=== PATIENT | female | born 1965 | race Caucasian/White ===

== ENCOUNTER 2016-04-25 22:30 | Emergency (ER) | payer OTHER ==
[2016-04-25 22:36] VITALS: BP 148/85; PULSE 93; TEMP 98.8; BMI 26.5
[2016-04-25] MEDS ORDERED: ONDANSETRON 4 MG/2 ML VIAL IVPUSH ONE (23:19)
[2016-04-25] MEDS ORDERED: SODIUM CHLORIDE 1,000 ML IV STA (23:19)
[2016-04-25] MEDS ORDERED: FAMOTIDINE 20 MG/50 ML IVPB 50 ML IVPB ONE (23:19)
--- NOTE | 2016-04-25 23:19 | PDOC ---
History of Present Illness - General History Source: Patient, Old Records Exam Limitations: No Limitations - History of Present Illness Initial Comments: 04/25/16 23:24 The patient is a 50 year old female with significant past medical history of HTN , kidney disease, and thyroid disease, who presents to the ED with vomiting dizziness, and headache for 2 days. The patient reports that after smelling clorox she began vomiting. The patient reports associated abdominal pain only when she vomits. The patient states that she began to feel dizzy and developed a headache after vomiting. The patient denies diarrhea, or sick contacts. <Arash Cortes - Last Filed: 04/26/16 00:07> <Nico Hendrickson - Last Filed: 04/26/16 01:31> - General Chief Complaint: Nausea/Vomiting Stated Complaint: VOMITING Time Seen by Provider: 04/25/16 23:14 Past History <Arash Cortes - Last Filed: 04/26/16 00:07> - Past Medical History HTN: Yes Seizures: Yes - Surgical History Cholecystectomy: Yes - Psycho/Social/Smoking Cessation Hx Anxiety: No Suicidal Ideation: No Smoking History: Never smoked Have you smoked in the past 12 months: No Information on smoking cessation initiated: No Hx Alcohol Use: No Drug/Substance Use Hx: No Substance Use Type: None <Nico Hendrickson - Last Filed: 04/26/16 01:31> - Past Medical History Allergies/Adverse Reactions: Allergies Allergy/AdvReac Type Severity Reaction Status Date / Time No Known Allergies Allergy Verified 04/25/16 22:33 Home Medications: Ambulatory Orders Levothyroxine [Synthroid -] 100 mcg PO DAILY 10/05/14 Review of Systems - Review of Systems Able to Perform ROS?: Yes Constitutional: Yes: Symptoms Reported, See HPI, Other HEENTM: Yes: Symptoms Reported, See HPI, Other ABD/GI: Yes: Symptoms Reported, See HPI, Nausea, Vomiting, Abdominal cramping Neurological: Yes: Symptoms reported, See HPI, Headache <Arash Cortes - Last Filed: 04/26/16 00:07> *Physical Exam - Vital Signs Last Vital Signs Temp Pulse Resp BP Pulse Ox 98.8 F 93 H 14 148/85 99 04/25/16 22:34 04/25/16 22:34 04/25/16 22:34 04/25/16 22:34 04/25/16 22:34 <Arash Cortes - Last Filed: 04/26/16 00:07> - Vital Signs Last Vital Signs Temp Pulse Resp BP Pulse Ox 98.8 F 93 H 14 148/85 99 04/25/16 22:34 04/25/16 22:34 04/25/16 22:34 04/25/16 22:34 04/25/16 22:34 - Physical Exam General Appearance: Yes: Nourished, Appropriately Dressed. No: Apparent Distress HEENT: positive: EOMI, WILL, Normal ENT Inspection Neck: positive: Supple. negative: Carotid bruit Respiratory/Chest: positive: Lungs Clear, Normal Breath Sounds. negative: Chest Tender, Respiratory Distress Cardiovascular: positive: Regular Rhythm, Regular Rate Gastrointestinal/Abdominal: positive: Normal Bowel Sounds, Soft. negative: Tender Musculoskeletal: positive: Normal Inspection. negative: CVA Tenderness Extremity: positive: Normal Capillary Refill, Normal Range of Motion. negative : Pedal Edema Integumentary: positive: Normal Color Neurologic: positive: cashier self service gasoline II-XII NML intact, Fully Oriented, Alert, Normal Mood/ Affect, Normal Response, Motor Strength 5/5, Other (NO ATAXIA OR NYSTAGMUS) <Nico Hendrickson - Last Filed: 04/26/16 01:31> ED Treatment Course - LABORATORY CBC & Chemistry Diagram: 04/25/16 23:40 04/25/16 23:40 <Arash Cortes - Last Filed: 04/26/16 00:07> - LABORATORY CBC & Chemistry Diagram: 04/25/16 23:40 04/25/16 23:40 <Nico Hendrickson - Last Filed: 04/26/16 01:31> Progress Note - Progress Note Progress Note: VOMITING, HEAD ACHE, AND DIZZINESS LIKELY VIRAL WILL HYDRATE/ZOFRAN/PEPCID CHECK BMP REASSESS 1:29 am Better. azam po labs wnl and u/a c/w pmhx reported d/c home <Nico Hendrickson - Last Filed: 04/26/16 01:31> *DC/Admit/Observation/Transfer - Attestations Scribe Attestion: 04/25/16 23:24 Documentation prepared by Arash Artuso, acting as medical secretary teacher for Nico Hendrickson MD. <Arash Cortes - Last Filed: 04/26/16 00:07> <Nico Hendrickson - Last Filed: 04/26/16 01:31> Diagnosis at time of Disposition: Vomiting Qualifiers: Vomiting type: unspecified Vomiting Intractability: non-intractable Nausea presence: with nausea Qualified Code(s): R11.2 - Nausea with vomiting, unspecified - Discharge Dispostion Disposition: HOME Condition at time of disposition: Improved - Referrals Referrals: Antoni Zapien MD [Primary Care Provider] - Call tomorrow - Patient Instructions Additional Instructions: TAKE ALL MEDICATIONS PRESCRIBED PLENTY OF FLUIDS (WATER/GATORADE) BLAND DIET, ADVANCE TOLERATED EAT FREQUENT, SMALL MEALS THROUGHOUT THE DAY MAALOX, 30 ml 1/2 HOUR AFTER MEALS AND AT BED TIME RETURN IF FEVER, VOMITING, SEVERE PAIN SEE YOUR DOCTOR TOMORROW
[2016-04-26] MEDS ORDERED: FAMOTIDINE 20 MG/50 ML IVPB 50 ML IVPB ONE (00:02)
[2016-04-26] MEDS ORDERED: ONDANSETRON 4 MG/2 ML VIAL ONE (00:02)
[2016-04-26 00:09] LABS: MCH 29.4 pg (25.7-33.7); MEAN CELL VOLUME 89.1 fl (80-96); MEAN PLT VOLUME 9.4 fl (7.5-11.1); PLATELET COUNT 233 K/MM3 (134-434); RDW 13.5 % (11.6-15.6); WHITE BLOOD COUNT 9.1 K/mm3 (4.0-10.0)
[2016-04-26 00:41] LABS: CALCIUM 9.1 mg/dL (8.5-10.1); CREATININE 0.7 mg/dL (0.55-1.02)
[2016-04-26 00:45] LABS: URINE APPEARANCE SLCLOUDY; URINE BILIRUBIN NEGATIVE (NEGATIVE); URINE COLOR AMBER; URINE GLUCOSE (UA) NEGATIVE (NEGATIVE); URINE KETONE TRACE (NEGATIVE); URINE LEUK ESTERASE NEGATIVE (NEGATIVE); URINE NITRITE NEGATIVE (NEGATIVE); URINE UROBILINOGEN 2.0 E.U/dl E.U./dl (0.2-1.0)
[2016-04-26 00:51] LABS: URINE BLOOD 1+ (NEGATIVE); URINE PROTEIN 2+ (NEGATIVE)
[2016-04-26] MEDS ORDERED: MAG HYDROX/AL HYDROX/SIMETH 30 ML UNIT-DOSE CUP PO ONE (01:21)
[2016-04-26 01:22] LABS: URINE HYALINE CAST 13 /lpf; URINE MUCUS MODERATE; URINE RBC 7 /hpf (0-3); URINE WBC 3 /hpf (3-5)
[2016-04-26 01:23] LABS: URINE BACTERIA RARE /hpf (NONE SEEN)
[2016-04-26] MEDS ORDERED: MAG HYDROX/AL HYDROX/SIMETH 30 ML UNIT-DOSE CUP ONE (01:28)
[2016-04-26] MEDS ORDERED: ONDANSETRON *ODT* 4 MG TABLET SL ONE (01:56)
[2016-04-26] MEDS ORDERED: ONDANSETRON 8 MG TABLET (FP) PO ONE (01:58)
== END 2016-04-26 02:43 | disposition home or self-care (01) ==
LOC: JER 22:30
PROC: 3E033GC Introduction of Other Therapeutic Substance into Peripheral Vein, Percutaneous Approach (ICD-10-PCS; principal; 2016-04-25)
DX: B34.9 Viral infection, unspecified (principal)
CPT/HCPCS: 36415; 80048; 81003; 81015; 85027; 99282-25

== ENCOUNTER 2016-04-27 14:34 | Emergency (ER) | payer OTHER ==
[2016-04-27 14:48] VITALS: BMI 26.9
--- NOTE | 2016-04-27 15:27 | PDOC ---
History of Present Illness - General Chief Complaint: Headache Stated Complaint: (PCP SENT) VOMITING Time Seen by Provider: 04/27/16 15:09 History Source: Patient Exam Limitations: No Limitations - History of Present Illness Initial Comments: 04/27/16 15:27 CHIEF COMPLAINT: Headache HISTORY OF PRESENT ILLNESS: This is a 50 year old female with a history of thyroidectomy, HTN, and diet-controlled DM who presents for evaluation of five days of headache and vomiting. The headache started on Monday during her usual activities. She describes it as both frontal and occipital. She reports associated vomiting. The headache has persisted despite Motrin use and she vomited once today. She has been having chills throughout. She has photophobia but denies phonophobia, focal weakness, dizziness/ataxia, syncope, or any other symptoms. She does have a distant history of migraines, but has not had one for many years and states that these symptoms are different. The patient was seen in the ED on 04/25 and discharged after fluids and Zofran. She is sent in by her PCP today with a request for LP to rule out viral meningitis. The patient teaches in a college. She travelled to in February. She has had no known sick contacts. Vital signs on arrival are unremarkable. REVIEW OF SYSTEMS: GENERAL/CONSTITUTIONAL: Chills. Subjective fever on Monday. No weakness. No weight change. HEAD, EYES, EARS, NOSE AND THROAT: No change in vision. No ear pain or discharge. No sore throat. CARDIOVASCULAR: No chest pain or palpitations. RESPIRATORY: No cough, wheezing, or shortness of breath. GASTROINTESTINAL: Nausea/vomiting. No abdominal pain, diarrhea, or constipation. GENITOURINARY: No dysuria, frequency, or change in urination. MUSCULOSKELETAL: No joint or muscle swelling or pain. No neck or back pain. SKIN: No rash or easy bruising. NEUROLOGIC: See HPI. PSYCHIATRIC: No depression or anxiety. ENDOCRINE: No increased thirst. No abnormal weight change. HEMATOLOGIC/LYMPHATIC: No anemia, easy bleeding, or history of blood clots. ALLERGIC/IMMUNOLOGIC: No hives or skin allergy. No latex allergy. PHYSICAL EXAM: GENERAL: The patient is awake, alert, and fully oriented, in no acute distress. HEAD: Normal with no signs of trauma. ENT: Pupils equal, round and reactive to light, extraocular movements intact, sclera anicteric, conjunctiva clear. Neck supple. LUNGS: Clear to auscultation bilaterally. Normal excursion. No respiratory distress or use of accessory muscles. CV: RRR, S1/S2, no MRG. Cap refill < 2 sec. ABDOMEN: Soft, non-distended, non-tender. EXTREMITIES: Normal range of motion, no edema. NEUROLOGICAL: Normal speech, normal gait. CN II-XII grossly intact. Negative Kernig's and Brudzinski's signs. PSYCH: Normal mood, normal affect. SKIN: Warm, dry, normal turgor, no rashes or lesions noted. Past History - Past Medical History Allergies/Adverse Reactions: Allergies Allergy/AdvReac Type Severity Reaction Status Date / Time No Known Allergies Allergy Verified 04/25/16 22:33 Home Medications: Ambulatory Orders Levothyroxine [Synthroid -] 100 mcg PO DAILY 10/05/14 Ibuprofen [Motrin -] 600 mg PO QID PRN #30 tablet 04/27/16 Ondansetron [Zofran Odt -] 4 mg SL TID PRN #21 od.tablet 04/27/16 HTN: Yes Seizures: Yes - Surgical History Cholecystectomy: Yes - Immunization History Immunization Up to Date: Yes - Psycho/Social/Smoking Cessation Hx Anxiety: No Suicidal Ideation: No Smoking History: Never smoked Have you smoked in the past 12 months: No Information on smoking cessation initiated: No Hx Alcohol Use: No Drug/Substance Use Hx: No Substance Use Type: None *Physical Exam - Vital Signs Last Vital Signs Temp Pulse Resp BP Pulse Ox 97.8 F 81 16 135/89 98 04/27/16 14:43 04/27/16 14:43 04/27/16 14:43 04/27/16 14:43 04/27/16 14:43 Procedures - Lumbar Puncture Indication: Meningitis CT Scan: Yes Betadine Prep: Yes Position: Right lateral decubitus Site: L3-L4 Local Anesthesia: 1% Lidocaine with epi Volume(ml): 3 Needle Size(gauge): 22 Traumatic Tap: No Tubes Obtained: 4 Clear Fluid: Yes Complications: No ED Treatment Course - LABORATORY CBC & Chemistry Diagram: 04/27/16 16:00 04/27/16 16:00 Medical Decision Making - Medical Decision Making 04/27/16 18:40 A/P: 50 year old female with five days of headache and vomiting. 1. Basic labs 2. Head CT 3. Reglan/Benadryl, Magnesium Sulfate, Toradol (if CT negative) for abortive therapy 4. LP 5. Neuro consultation as requested by PCP - case discussed with Dr. Ny 04/27/16 18:48 CSF glucose and protein within normal limits. 0 WBCs. 1-[address] Sanchez evaluated patient at bedside and cleared her for discharge with followup in 10 days. *DC/Admit/Observation/Transfer Diagnosis at time of Disposition: Headache Qualifiers: Headache type: unspecified Headache chronicity pattern: acute headache Intractability: not intractable Qualified Code(s): R51 - Headache - Discharge Dispostion Disposition: HOME Condition at time of disposition: Improved Admit: No - Prescriptions Prescriptions: Ibuprofen [Motrin -] 600 mg PO QID PRN #30 tablet PRN Reason: Pain Ondansetron [Zofran Odt -] 4 mg SL TID PRN #21 od.tablet PRN Reason: Nausea - Referrals Referrals: Antoni Zapien MD [Primary Care Provider] - Tracie Ny MD [Staff Physician] - Call tomorrow - Patient Instructions Printed Discharge Instructions: DI for Migraine Additional Instructions: -You were seen today for headache and vomiting. -Preliminary results from your lumbar puncture are NOT consistent with meningitis -Cultures will take a few days to return; you can call [phone] for results, or expect a call if any results are abnormal -Take ibuprofen and zofran as prescribed if needed for headache or nausea -Follow up with Dr. Zapien as well as neurology (referral enclosed) this week -Return here for weakness, difficulty walking, fever over 101, or any other concerning symptoms - Post Discharge Activity Work/School Note: Back to Work
[2016-04-27] MEDS ORDERED: METOCLOPRAMIDE HCL INJECTION 10 MG/2 ML VIAL IVPB ONE (15:36)
[2016-04-27] MEDS ORDERED: MAGNESIUM SULF 50% (8.12 MEQ/2 ML-1 GM VIAL) IVPB ONE (15:59)
[2016-04-27] MEDS ORDERED: KETOROLAC TROMETHAMINE 30 MG/1 ML VIAL IVPUSH ONE (15:59)
[2016-04-27 16:12] LABS: BASOPHIL 0.7 % (0-2.0); EOSINOPHIL 0.8 % (0-4.5); MCH 29.2 pg (25.7-33.7); MCHC 32.9 g/dl (32.0-36.0); NEUTROPHILS 65.4 % (42.8-82.8); PLATELET COUNT 244 K/MM3 (134-434); RDW 13.3 % (11.6-15.6); WHITE BLOOD COUNT 7.7 K/mm3 (4.0-10.0)
[2016-04-27] MEDS ORDERED: METOCLOPRAMIDE HCL INJECTION 10 MG/2 ML VIAL ONE (16:19)
[2016-04-27] MEDS ORDERED: MAGNESIUM SULF 50% (8.12 MEQ/2 ML-1 GM VIAL) ONE ×2 (16:20→16:49)
[2016-04-27] MEDS ORDERED: KETOROLAC TROMETHAMINE 30 MG/1 ML VIAL ONE (16:20)
[2016-04-27 16:25] LABS: URINE APPEARANCE CLOUDY; URINE BILIRUBIN NEGATIVE (NEGATIVE); URINE BLOOD 1+ (NEGATIVE); URINE COLOR AMBER; URINE GLUCOSE (UA) NEGATIVE (NEGATIVE); URINE KETONE NEGATIVE (NEGATIVE); URINE LEUK ESTERASE NEGATIVE (NEGATIVE); URINE NITRITE NEGATIVE (NEGATIVE); URINE PROTEIN 1+ (NEGATIVE); URINE UROBILINOGEN 2.0 E.U/dl E.U./dl (0.2-1.0)
[2016-04-27 16:27] LABS: URINE HYALINE CAST 1 /lpf; URINE MUCUS FEW; URINE RBC 15 /hpf (0-3); URINE WBC 2 /hpf (3-5)
[2016-04-27 16:32] LABS: ALBUMIN 4.5 g/dl (3.4-5.0); ANION GAP 9 (8-16); BILIRUBIN,TOTAL 0.5 mg/dL (0.2-1.0); CO2 31 mmol/L (21-32); CREATININE 0.7 mg/dL (0.55-1.02); GLUCOSE,RANDOM 92 mg/dL (74-106); SGOT/AST 60 U/L (15-37); SGPT/ALT 109 U/L (12-78); TOT PROT 8.5 g/dl (6.4-8.2)
[2016-04-27 16:33] LABS: ALK PHOS 98 U/L (45-117); INR 1.1 (0.82-1.09); PROTHROMBIN TIME (PATIENT) 12.1 SEC (9.98-11.88)
[2016-04-27] MEDS ORDERED: MIDAZOLAM HCL 5 MG/1 ML Single Dose Vial IVPUSH ONE (16:42)
[2016-04-27] MEDS ORDERED: MIDAZOLAM HCL 2 MG/2 ML SINGLE DOSE VIAL ONE (16:49)
--- NOTE | 2016-04-27 16:56 | PDOC ---
*Physical Exam - Vital Signs Last Vital Signs Temp Pulse Resp BP Pulse Ox 97.8 F 81 16 135/89 98 04/27/16 14:43 04/27/16 14:43 04/27/16 14:43 04/27/16 14:43 04/27/16 14:43 ED Treatment Course - LABORATORY CBC & Chemistry Diagram: 04/27/16 16:00 04/27/16 16:00 - ADDITIONAL ORDERS Additional order review: Laboratory Results 04/27/16 04/27/16 04/27/16 16:00 16:00 16:00 INR 1.10 Sodium 141 Potassium 3.8 Chloride 101 Carbon Dioxide 31 Anion Gap 9 BUN 14 Creatinine 0.7 Creat Clearance w eGFR > 60 Random Glucose 92 Lactic Acid 0.437 Calcium 9.0 Total Bilirubin 0.5 D AST 60 H D ALT 109 H D Alkaline Phosphatase 98 Total Protein 8.5 H Albumin 4.5 D Urine Color Urine Appearance Urine pH Ur Specific [place] Urine Protein Urine Glucose (UA) Urine Ketones Urine Blood Urine Nitrite Urine Bilirubin Urine Urobilinogen Ur Leukocyte Esterase Urine RBC Urine WBC Ur Epithelial Cells Hyaline Casts Urine Mucus Urine HCG, Qual 04/27/16 16:00 INR Sodium Potassium Chloride Carbon Dioxide Anion Gap BUN Creatinine Creat Clearance w eGFR Random Glucose Lactic Acid Calcium Total Bilirubin AST ALT Alkaline Phosphatase Total Protein Albumin Urine Color [place] Urine Appearance Cloudy Urine pH 5.0 Ur Specific [place] 1.028 Urine Protein 1+ H Urine Glucose (UA) Negative Urine Ketones Negative Urine Blood 1+ H Urine Nitrite Negative Urine Bilirubin Negative Urine Urobilinogen 2.0 e.u/dl H Ur Leukocyte Esterase Negative Urine RBC 15 Urine WBC 2 Ur Epithelial Cells Many Hyaline Casts 1 Urine Mucus Few Urine HCG, Qual Negative 04/27/16 16:00 RBC 4.37 MCV 89.0 MCHC 32.9 RDW 13.3 MPV 9.0 Neutrophils % 65.4 Lymphocytes % 27.8 D Monocytes % 5.3 Eosinophils % 0.8 Basophils % 0.7 - Medications Given in the ED: ED Medications Discontinued Medications Generic Name Dose Route Start Last Admin Trade Name Freq PRN Reason Stop Dose Admin Diphenhydramine HCl 12.5 mg 04/27/16 15:36 04/27/16 16:27 Benadryl Injection - IVPUSH 04/27/16 15:37 12.5 mg ONCE ONE Administration Ketorolac Tromethamine 30 mg 02/08/17 15:59 04/27/16 16:30 Toradol Injection - IVPUSH 04/27/16 16:00 30 mg ONCE ONE Administration Metoclopramide HCl 10 mg 04/27/16 15:36 04/27/16 16:30 Reglan Injection - IVPB 04/27/16 15:37 10 mg ONCE ONE Administration Medical Decision Making - Medical Decision Making 04/27/16 16:49 Patient seen and evaluated with the nurse practitioner. I agree with the overall evaluation, assessment, and management with the following summary of visit: 50-year-old female with no severe past medical history other than hypothyroidism presents sent in by Dr. Zapien for further evaluation of headache. Patient was in her usual state of normal health, traveled to the [facility] [place] in early March, around 5 days ago developed nausea and vomiting that was nonbloody and nonbilious, and had subsequent onset of gradual and mild headache. Since then, headache has persisted in the frontal and occipital regions, there was associated with persistent nausea, chills, and some upper back/neck pain that the patient attributed to her known cervical disc disease. Some photophobia, no focal neurological deficits or rash. Patient went to Dr. Zapien today for evaluation of her symptoms, and was sent to the ED for LP to rule out viral meningitis. Patient is well-appearing, afebrile, has no photophobia on exam or objective meningismal signs. Neurological exam is normal, skin exam is normal. 50-year-old female with recent travel presents with headache and subjective chills for one week, neurologically intact and generally well-appearing. Presentation seems most consistent with a general viral syndrome. Meningitis seems slightly less likely but given the persistence of headache and vomiting, will rule out with LP. Question lyme, but unlikely other bacterial meningitis given the timeframe. Labs notable for normal white count, slightly elevated transaminases, negative lactate and no UTI on UA. Neuro consulted, agree with CT Will proceed with LP for further evaluation and cultures *DC/Admit/Observation/Transfer Diagnosis at time of Disposition: Headache Qualifiers: Headache type: unspecified Headache chronicity pattern: acute headache Intractability: not intractable Qualified Code(s): R51 - Headache
[2016-04-27] MEDS ORDERED: LIDOCAINE HCL 2% (20ML MULTI-DOSE VIAL) NR ONE (17:20)
[2016-04-27 18:07] LABS: CSF APPEARANCE CLEAR; CSF COLOR COLORLESS; CSF RBC 3 /mm3
[2016-04-27 18:08] LABS: CSF APPEARANCE CLEAR; CSF COLOR COLORLESS; CSF RBC 1 /mm3
[2016-04-27 18:29] LABS: GLUCOSE,CSF 65 mg/dL (50-80)
[2016-04-27 18:47] VITALS: BP 112/76; PULSE 71; TEMP 98.3
--- NOTE | 2016-04-27 19:29 | CON.NEURO ---
Consult Consult Specialty:: [facility] Referred by:: ASHWIN Man Reason for Consultation:: ALVARADO - History of Present Illness History of Present Illness: 50 woman with PMH Hypithyroidism a Headache with hx of hx presented with neck pain and mild fever Patient with recent travel to [facility] No head trau,ia No fall No change in appetite In The ER Ct head was negative and patient had LP saw the patient the the ER No more headache and neck pain - History Source History Provided By: Patient Limitations to Obtaining History: No Limitations - Alcohol/Substance Use Hx Alcohol Use: No - Smoking History Smoking history: Never smoked Have you smoked in the past 12 months: No Home Medications - Allergies Allergies/Adverse Reactions: Allergies Allergy/AdvReac Type Severity Reaction Status Date / Time No Known Allergies Allergy Verified 04/25/16 22:33 - Home Medications Home Medications: Ambulatory Orders Levothyroxine [Synthroid -] 100 mcg PO DAILY 10/05/14 Ibuprofen [Motrin -] 600 mg PO QID PRN #30 tablet 04/27/16 Ondansetron [Zofran Odt -] 4 mg SL TID PRN #21 od.tablet 04/27/16 Family Disease History - Family Disease History Family History: Denies (CVA) Review of Systems - Review of Systems Constitutional: reports: No Symptoms Eyes: reports: No Symptoms Neurological: reports: Dizziness, Headache Physical Exam-Neuro Vital Signs: Vital Signs Temperature 98.3 F 04/27/16 18:46 Pulse Rate 71 04/27/16 18:46 Respiratory Rate 16 04/27/16 18:46 Blood Pressure 112/76 04/27/16 18:46 O2 Sat by Pulse Oximetry (%) 98 04/27/16 18:46 Constitutional: Yes: Well Nourished Neck: Yes: WNL Labs: CBC, BMP 04/27/16 16:00 04/27/16 16:00 INR, PTT INR 1.10 (0.82-1.09) 04/27/16 16:00 - Neuro Exam Level Of Consciousness: Yes: Oriented to Person, Oriented to Place Eyes: Yes: PERRLA Speech: WNL Dominant Hand: Right Cranial Nerves II-XII Intact: Yes Gag: Present DTR's: 1+ Right Bicep, 1+ Left Tricep, 1+ Left Brachioradialis, 1+ Right Brachioradialis Response to light touch: Normal Response to pain prick: Normal Response to temperature: Normal Motor Strength: 3/5: Left Arm, Right Arm, Left Leg, Right Leg Gait: Deferred Imaging - Results Cat Scan: Image Reviewed Problem List - Problems (1) Headache Code(s): R51 - HEADACHE Qualifiers: Headache type: unspecified Headache chronicity pattern: acute headache Intractability: not intractable Qualified Code(s): R51 - Headache (2) Vomiting Code(s): R11.10 - VOMITING, UNSPECIFIED Assessment/Plan >?? viral syndrome CSF neg for infection Tylenol Bed rest neurology follow up in two weeks Neuro ok to go home Thank you fro the kind referral
[2016-05-01 00:15] LABS: HSV 2 DNA. Negative (Negative)
== END 2016-04-27 19:01 | disposition home or self-care (01) ==
LOC: JER 14:34
PROC: 009U3ZZ Drainage of Spinal Canal, Percutaneous Approach (ICD-10-PCS; principal; 2016-04-27)
PROC: 3E033GC Introduction of Other Therapeutic Substance into Peripheral Vein, Percutaneous Approach (ICD-10-PCS; 2016-04-27)
PROC: 3E0333Z Introduction of Anti-inflammatory into Peripheral Vein, Percutaneous Approach (ICD-10-PCS; 2016-04-27)
DX: R51 Headache (principal); R11.10 Vomiting, unspecified; I10 Essential (primary) hypertension; E07.9 Disorder of thyroid, unspecified
CPT/HCPCS: 36415; 70450-TC; 80053; 81003; 81015; 82945; 83605; 84157; 84703; 85025; 85610; 87040; 87070; 87205; 87476; 87529; 89050; 99283-25

== ENCOUNTER 2016-11-14 16:35 | Observation (INO) | payer OTHER ==
--- NOTE | 2016-11-14 17:24 | PDOC ---
History of Present Illness - General History Source: Patient Exam Limitations: No Limitations - History of Present Illness Initial Comments: 11/14/16 17:24 CHIEF COMPLAINT: Right arm numbness HISTORY OF PRESENT ILLNESS: This is a 50 year old female with a history of HTN and hypothyroidism (previously on Losartan and Synthroid, but has not taken either for several months after running out) who presents complaining of progressive fatigue and generalized weakness. On Monday, she developed right arm numbness and a "tingling" headache on the left side of her head. She has also noticed some slurring of her speech. She denies focal weakness, blurred vision, chest pain, shortness of breath, nausea/vomiting, or any other symptoms. PCP is Dr. Hughes (if admitted, Dr. Bright/Manolo) Patient is a non-smoker. No EtOH use. V/s on arrival are unremarkable. REVIEW OF SYSTEMS: GENERAL/CONSTITUTIONAL: Generalized weakness, fatigue. No fever or chills. No weight change. HEAD, EYES, EARS, NOSE AND THROAT: No change in vision. No ear pain or discharge. No sore throat. CARDIOVASCULAR: No chest pain or palpitations. RESPIRATORY: No cough, wheezing, or shortness of breath. GASTROINTESTINAL: No nausea, vomiting, diarrhea or constipation. GENITOURINARY: No dysuria, frequency, or change in urination. MUSCULOSKELETAL: No joint or muscle swelling or pain. No neck or back pain. SKIN: No rash or easy bruising. NEUROLOGIC: See HPI. PSYCHIATRIC: No depression or anxiety. ENDOCRINE: No increased thirst. No abnormal weight change. HEMATOLOGIC/LYMPHATIC: No anemia, easy bleeding, or history of blood clots. ALLERGIC/IMMUNOLOGIC: No hives or skin allergy. No latex allergy. PHYSICAL EXAM: GENERAL: The patient is awake, alert, and fully oriented, in no acute distress. HEAD: Normal with no signs of trauma. ENT: Pupils equal, round and reactive to light, extraocular movements intact, sclera anicteric, conjunctiva clear. Neck supple. LUNGS: Clear to auscultation bilaterally. Normal excursion. No respiratory distress or use of accessory muscles. CV: RRR, S1/S2, no MRG. Cap refill < 2 sec. ABDOMEN: Soft, non-distended, non-tender. EXTREMITIES: Normal range of motion, no edema. NEUROLOGICAL: Normal speech, normal gait. CN II-XII grossly intact. See NIHSS. PSYCH: Normal mood, normal affect. SKIN: Warm, dry, normal turgor, no rashes or lesions noted. <Magda Paulson - Last Filed: 11/14/16 19:18> <Hazel Hernandez - Last Filed: 11/14/16 20:41> - General Chief Complaint: CVA/TIA Stated Complaint: PCP SENT/NUMBNESS/DIZZINESS Time Seen by Provider: 11/14/16 17:22 NIH Stroke Scale - Last Known Well Date/Time & Onset Date Last Known Well: 11/12/16 - Initial Evaluation Level of consciousness: Alert Ask patient the month and their age: Answers both correctly Ask patient to open & close eyes; make fist and let go: Obeys both correctly Best gaze (horizontal eye movement): Normal Visual field testing: No visual field loss Facial paresis (Show teeth/raise eyebrows/close eyes tight): Normal symmetrical movement Motor Function: Left Arm: Normal Motor Function: Right Arm: Normal (extends arm 90 (or 45) degrees for 10 seconds without drift Motor Function: Left Leg: Normal (extends leg 30 degrees for 5 seconds without drift) Motor Function: Right Leg: Normal (extends leg 30 degrees for 5 seconds without drift) Limb Ataxia: No ataxia Sensory(Use pinprick test arms,legs,trunk,face/side to side): Mild to moderate decrease in sensation Best language (Describe picture, name items, read sentences): No Aphasia Dysarthria (read several words): Normal articulation Extinction and Inattention: No abnormality - Total Score NIH Stroke Scale Score: 1 <Magda Paulson - Last Filed: 11/14/16 19:18> Past History - Past Medical History HTN: Yes Seizures: Yes - Surgical History Cholecystectomy: Yes - Immunization History Immunization Up to Date: Yes - Psycho/Social/Smoking Cessation Hx Anxiety: No Suicidal Ideation: No Smoking History: Never smoked Have you smoked in the past 12 months: No Information on smoking cessation initiated: No Hx Alcohol Use: No Drug/Substance Use Hx: No Substance Use Type: None <Magda Paulson - Last Filed: 11/14/16 19:18> <Hazel Hernandez - Last Filed: 11/14/16 20:41> - Past Medical History Allergies/Adverse Reactions: Allergies Allergy/AdvReac Type Severity Reaction Status Date / Time No Known Allergies Allergy Verified 11/14/16 16:41 Home Medications: Ambulatory Orders Levothyroxine [Synthroid -] 100 mcg PO DAILY 10/05/14 Ibuprofen [Motrin -] 600 mg PO QID PRN #30 tablet 04/27/16 Ondansetron [Zofran Odt -] 4 mg SL TID PRN #21 od.tablet 04/27/16 *Physical Exam - Vital Signs Last Vital Signs Temp Pulse Resp BP Pulse Ox 98.6 F 64 18 99/73 100 11/14/16 16:38 11/14/16 16:38 11/14/16 16:38 11/14/16 16:38 11/14/16 16:38 <Magda Paulson - Last Filed: 11/14/16 19:18> - Vital Signs Last Vital Signs Temp Pulse Resp BP Pulse Ox 98.6 F 64 18 99/73 100 11/14/16 16:38 11/14/16 16:38 11/14/16 16:38 11/14/16 16:38 11/14/16 16:38 <Hazel Hernandez - Last Filed: 11/14/16 20:41> Heart Score/ECG Review - ECG Intrepretation Rhythm: Regular Rhythm Comment:: 11/14/16 20:41 Sinus Bradycardia : 54bpm <Hazel Hernandez - Last Filed: 11/14/16 20:41> ED Treatment Course - LABORATORY CBC & Chemistry Diagram: 11/14/16 18:00 11/14/16 18:00 - RADIOLOGY Radiology Studies Ordered: Category Date Time Status HEAD CT (STROKE) [CT] Stat CT Scan 11/14/16 17:22 Ordered <Magda Paulson - Last Filed: 11/14/16 19:18> - LABORATORY CBC & Chemistry Diagram: 11/14/16 18:00 11/14/16 18:00 - ADDITIONAL ORDERS Additional order review: Laboratory Results 11/14/16 11/14/16 11/14/16 18:22 18:00 18:00 INR Sodium Potassium Chloride Carbon Dioxide Anion Gap BUN Creatinine Creat Clearance w eGFR Random Glucose Calcium Total Bilirubin AST ALT Alkaline Phosphatase Creatine Kinase Creatine Kinase Index CK-MB (CK-2) Troponin I Total Protein Albumin Triglycerides Cholesterol Total LDL Cholesterol HDL Cholesterol TSH 149.00 H Free T4 0.15 L Urine Color Yellow Urine Appearance Clear Urine pH 6.0 Ur Specific [place] 1.015 Urine Protein Negative Urine Glucose (UA) Negative Urine Ketones Negative Urine Blood 1+ H Urine Nitrite Negative Urine Bilirubin Negative Urine Urobilinogen Negative Ur Leukocyte Esterase Negative Urine RBC 2 Urine WBC 1 Ur Epithelial Cells Rare Hyaline Casts 1 Urine Mucus Rare Blood Type Antibody Screen 11/14/16 11/14/16 11/14/16 18:00 18:00 18:00 INR 1.04 Sodium 138 Potassium 3.6 Chloride 100 Carbon Dioxide 32 Anion Gap 6 L BUN 16 Creatinine 1.2 H D Creat Clearance w eGFR 47.75 Random Glucose 87 Calcium 8.9 Total Bilirubin 0.5 AST 60 H ALT 65 D Alkaline Phosphatase 109 Creatine Kinase 779 H Creatine Kinase Index 0.3 CK-MB (CK-2) 3.056 Troponin I < 0.02 Total Protein 8.2 Albumin 4.5 Triglycerides 192 H Cholesterol 332 H Total LDL Cholesterol 227 H HDL Cholesterol 67 H TSH Free T4 Urine Color Urine Appearance Urine pH Ur Specific [place] Urine Protein Urine Glucose (UA) Urine Ketones Urine Blood Urine Nitrite Urine Bilirubin Urine Urobilinogen Ur Leukocyte Esterase Urine RBC Urine WBC Ur Epithelial Cells Hyaline Casts Urine Mucus Blood Type O POSITIVE Antibody Screen Negative 11/14/16 18:00 RBC 3.92 MCV 89.6 MCHC 33.8 RDW 14.7 D MPV 9.1 Neutrophils % 51.6 D Lymphocytes % 41.7 H D Monocytes % 4.4 Eosinophils % 1.4 Basophils % 0.9 - Medications Given in the ED: ED Medications Discontinued Medications Generic Name Dose Route Start Last Admin Trade Name Latricia PRN Reason Stop Dose Admin Aspirin 324 mg 11/14/16 19:04 11/14/16 19:17 Asa - PO 11/14/16 19:05 324 mg ONCE ONE Administration <Hazel Hernandez - Last Filed: 11/14/16 20:41> Medical Decision Making - Medical Decision Making 11/14/16 19:00 A/P: 50 year old female with right arm numbness and reported slurring of speech. 1. EKG 2. Cardiac labs and TSH/Free T4 3. HCT 4. Likely observation HCT: No acute intracranial process. ASA given. Observation and neuro consultation requested. Accepted by Dr. French. <Magda Paulson - Last Filed: 11/14/16 19:18> *DC/Admit/Observation/Transfer - Discharge Dispostion Admit: Yes <Magda Paulson - Last Filed: 11/14/16 19:18> <Hazel Hernandez - Last Filed: 11/14/16 20:41> Diagnosis at time of Disposition: Right arm numbness - Referrals Referrals: Bhupendra Hughes MD [Primary Care Provider] -
[2016-11-14] MEDS ORDERED: SODIUM CHLORIDE 1,000 ML IV SCH (17:30)
[2016-11-14 18:07] LABS: BASOPHIL 0.9 % (0-2.0); EOSINOPHIL 1.4 % (0-4.5); MCH 30.3 pg (25.7-33.7); MCHC 33.8 g/dl (32.0-36.0); MEAN CELL VOLUME 89.6 fl (80-96); MEAN PLT VOLUME 9.1 fl (7.5-11.1); NEUTROPHILS 51.6 % (42.8-82.8); PLATELET COUNT 221 K/MM3 (134-434); RDW 14.7 % (11.6-15.6)
[2016-11-14 18:23] LABS: INR 1.04 (0.82-1.09); PROTHROMBIN TIME (PATIENT) 11.5 SEC (9.98-11.88)
[2016-11-14 18:44] LABS: ALBUMIN 4.5 g/dl (3.4-5.0); ALK PHOS 109 U/L (45-117); ANION GAP 6 (8-16); BILIRUBIN,TOTAL 0.5 mg/dL (0.2-1.0); CALCIUM 8.9 mg/dL (8.5-10.1); CHOLESTEROL 332 mg/dL (50-200); CO2 32 mmol/L (21-32); CREATININE 1.2 mg/dL (0.55-1.02); GLUCOSE,RANDOM 87 mg/dL (74-106); LDL CHOLESTEROL (ONLY SJRH) 227 mg/dL (5-100); SGOT/AST 60 U/L (15-37); SGPT/ALT 65 U/L (12-78); TOT PROT 8.2 g/dl (6.4-8.2)
[2016-11-14 18:46] LABS: URINE APPEARANCE CLEAR; URINE BILIRUBIN NEGATIVE (NEGATIVE); URINE BLOOD 1+ (NEGATIVE); URINE COLOR YELLOW; URINE GLUCOSE (UA) NEGATIVE (NEGATIVE); URINE KETONE NEGATIVE (NEGATIVE); URINE LEUK ESTERASE NEGATIVE (NEGATIVE); URINE NITRITE NEGATIVE (NEGATIVE); URINE PROTEIN NEGATIVE (NEGATIVE); URINE UROBILINOGEN NEGATIVE mg/dL (0.2-1.0)
[2016-11-14 19:00] LABS: CPK 779 IU/L (26-192)
[2016-11-14 19:01] LABS: TROPONIN I < 0.02 ng/ml (0.00-0.05)
[2016-11-14] MEDS ORDERED: ASPIRIN 81 MG CHEWABLE TABLETS PO ONE (19:04)
[2016-11-14] MEDS ORDERED: ASPIRIN 81 MG CHEWABLE TABLETS ONE (19:08)
[2016-11-14] MEDS ORDERED: ATORVASTATIN CA 80 MG TABLET (FP) PO ONE (19:12)
[2016-11-14 19:13] LABS: URINE HYALINE CAST 1 /lpf; URINE MUCUS RARE; URINE RBC 2 /hpf (0-3); URINE WBC 1 /hpf (3-5)
[2016-11-14] MEDS ORDERED: ATORVASTATIN CA 40 MG TABLET (FP) PO SCH (22:00)
[2016-11-14] MEDS ORDERED: ATORVASTATIN CA 80 MG TABLET (FP) ONE (22:12)
[2016-11-15 02:17] VITALS: BMI 28.5
[2016-11-15 06:49] LABS: BASOPHIL 0.8 % (0-2.0); EOSINOPHIL 1.8 % (0-4.5); MCHC 33.4 g/dl (32.0-36.0); MEAN CELL VOLUME 89.8 fl (80-96); MEAN PLT VOLUME 9.1 fl (7.5-11.1); NEUTROPHILS 46.2 % (42.8-82.8); PLATELET COUNT 194 K/MM3 (134-434); RDW 14.6 % (11.6-15.6); WHITE BLOOD COUNT 6.9 K/mm3 (4.0-10.0)
[2016-11-15] MEDS ORDERED: LEVOTHYROXINE NA 100 MCG TABLET (FP) PO SCH (07:00)
[2016-11-15 07:14] LABS: ALBUMIN 3.8 g/dl (3.4-5.0); ANION GAP 6 (8-16); CALCIUM 8.3 mg/dL (8.5-10.1); CHOLESTEROL 292 mg/dL (50-200); CO2 31 mmol/L (21-32); CREATININE 1.2 mg/dL (0.55-1.02); GLUCOSE,RANDOM 70 mg/dL (74-106); SGOT/AST 49 U/L (15-37); SGPT/ALT 54 U/L (12-78)
[2016-11-15 07:44] LABS: ALK PHOS 91 U/L (45-117); BILIRUBIN,TOTAL 0.5 mg/dL (0.2-1.0); LDL CHOLESTEROL (ONLY SJRH) 196 mg/dL (5-100); TOT PROT 6.9 g/dl (6.4-8.2)
--- NOTE | 2016-11-15 09:43 | HP ---
Admitting History and Physical - Primary Care Physician PCP: Bhupendra Hughes - Admission Chief Complaint: right hand pain and numbness History of Present Illness: ER HISTORY History of Present Illness Initial Comments: 11/14/16 17:24 CHIEF COMPLAINT: Right arm numbness HISTORY OF PRESENT ILLNESS: This is a 50 year old female with a history of HTN and hypothyroidism (previously on Losartan and Synthroid, but has not taken either for several months after running out) who presents complaining of progressive fatigue and generalized weakness. On Monday, she developed right arm numbness and a "tingling" headache on the left side of her head. She has also noticed some slurring of her speech. She denies focal weakness, blurred vision, chest pain, shortness of breath, nausea/vomiting, or any other symptoms. PCP is Dr. Hughes (if admitted, Dr. Bright/Manolo) Pt examined by me today, spoke with Neurologist and staff Pt non compliant with meds She currently has weakness of right hand, unable to fully poiser the hand. Has pain at the thumb and index finger. no slurred speech no headaches History Source: Patient Limitations to Obtaining History: No Limitations - Past Medical History Cardiovascular: Yes: HTN, Hyperlipdemia Endocrine: Yes: Hypothyroidism - Smoking History Smoking history: Never smoked Have you smoked in the past 12 months: No - Alcohol/Substance Use Hx Alcohol Use: No Home Medications - Allergies Allergies/Adverse Reactions: Allergies Allergy/AdvReac Type Severity Reaction Status Date / Time No Known Allergies Allergy Verified 11/14/16 16:41 - Home Medications Home Medications: Ambulatory Orders Aspirin [ASA -] 81 mg PO DAILY #30 tab.chew 11/15/16 Atorvastatin Ca [Lipitor] 40 mg PO HS #30 tablet 11/15/16 Levothyroxine [Synthroid -] 125 mcg PO DAILY@0700 #30 tablet 11/15/16 Review of Systems - Review of Systems Cardiovascular: denies: Chest Pain Neurological: reports: Numbness. denies: Change in Speech, Dizziness, Headache , Unsteady Gait, Weakness Physical Examination Vital Signs: Vital Signs Temperature 98.1 F 11/15/16 02:10 Pulse Rate 64 11/15/16 02:10 Respiratory Rate 18 11/15/16 02:10 Blood Pressure 96/58 11/15/16 02:10 O2 Sat by Pulse Oximetry (%) 100 11/15/16 02:10 Constitutional: Yes: No Distress, Calm Cardiovascular: Yes: Regular Rate and Rhythm Respiratory: Yes: CTA Bilaterally Gastrointestinal: Yes: Normal Bowel Sounds, Soft. No: Distention, Tenderness Edema: No Psychiatric: Yes: Alert, Oriented Labs: CBC, BMP 11/15/16 05:30 11/15/16 05:30 Imaging - Results Cat Scan: Report Reviewed Ultrasound: Report Reviewed EKG: Image Reviewed (NSR) Problem List - Problems (1) Right arm numbness Code(s): R20.2 - PARESTHESIA OF SKIN (2) Hypothyroid Code(s): E03.9 - HYPOTHYROIDISM, UNSPECIFIED (3) Hyperlipidemia Code(s): E78.5 - HYPERLIPIDEMIA, UNSPECIFIED (4) TIA (transient ischemic attack) Code(s): G45.9 - TRANSIENT CEREBRAL ISCHEMIC ATTACK, UNSPECIFIED Assessment/Plan PLAN Possible TIA as pt's slurred speech, numbness has resolved though her hand is still weak and painful increase Synthroid advised to recheck TSH in 3 weeks at PMD office Start Lipitor as cholesterol very high will hold off Losartan as her BP runs low Carotid doppler negative for stenosis and CT head-- negative for infartcs, hemmorrhage BRAIN MRI pending-- if negative may dc pt home she will need follow up with Neurology for EMG and to check for carpal tunnel syndrome right hand Time spent 30 min
[2016-11-15] MEDS ORDERED: ASPIRIN 81 MG CHEWABLE TABLETS PO SCH (10:00)
--- NOTE | 2016-11-15 10:01 | CONSULT ---
Consult - text type - Consultation Consultation Note: NEUROLOGY CHIEF COMPLAINT: Right arm numbness HISTORY OF PRESENT ILLNESS: This is a 50 year old female with a history of HTN and hypothyroidism (previously on Losartan and Synthroid, but has not taken either for several months after running out) who presented complaining of progressive fatigue and generalized weakness. On Monday, she developed right arm numbness and a "tingling" headache on the left side of her head. She has also noticed some slurring of her speech. She denies focal weakness, blurred vision, chest pain, shortness of breath, nausea/vomiting, or any other symptoms. She completed CT head and did not show acute changes. She was given ASA and admitted for CVA evaluation. CD completed and reviewed and did not show high grade stenosis. Past History - Past Medical History HTN: Yes Seizures: Yes - Surgical History Cholecystectomy: Yes - Immunization History Immunization Up to Date: Yes - Psycho/Social/Smoking Cessation Hx Anxiety: No Suicidal Ideation: No Smoking History: Never smoked Have you smoked in the past 12 months: No Information on smoking cessation initiated: No Hx Alcohol Use: No Drug/Substance Use Hx: No Substance Use Type: None Allergies/Adverse Reactions: Allergies Allergy/AdvReac Type Severity Reaction Status Date / Time No Known Allergies Allergy Verified 11/14/16 16:41 Home Medications: Ambulatory Orders Levothyroxine [Synthroid -] 100 mcg PO DAILY 10/05/14 Ibuprofen [Motrin -] 600 mg PO QID PRN #30 tablet 04/27/16 Ondansetron [Zofran Odt -] 4 mg SL TID PRN #21 od.tablet 04/27/16 REVIEW OF SYSTEMS: GENERAL/CONSTITUTIONAL: Generalized weakness, fatigue. No fever or chills. No weight change. HEAD, EYES, EARS, NOSE AND THROAT: No change in vision. No ear pain or discharge. No sore throat. CARDIOVASCULAR: No chest pain or palpitations. RESPIRATORY: No cough, wheezing, or shortness of breath. GASTROINTESTINAL: No nausea, vomiting, diarrhea or constipation. GENITOURINARY: No dysuria, frequency, or change in urination. MUSCULOSKELETAL: No joint or muscle swelling or pain. No neck or back pain. SKIN: No rash or easy bruising. PSYCHIATRIC: No depression or anxiety. ENDOCRINE: No increased thirst. No abnormal weight change. HEMATOLOGIC/LYMPHATIC: No anemia, easy bleeding, or history of blood clots. ALLERGIC/IMMUNOLOGIC: No hives or skin allergy. No latex allergy. *Physical Exam Vital Signs Temperature 98.1 F 11/15/16 02:10 Pulse Rate 64 11/15/16 02:10 Respiratory Rate 18 11/15/16 02:10 Blood Pressure 96/58 11/15/16 02:10 O2 Sat by Pulse Oximetry (%) 100 11/15/16 02:10 PHYSICAL EXAM: GENERAL: The patient is awake, alert, and fully oriented, in no acute distress. HEAD: Normal with no signs of trauma. ENT: Pupils equal, round and reactive to light, extraocular movements intact, sclera anicteric, conjunctiva clear. Neck supple. LUNGS: Clear to auscultation bilaterally. Normal excursion. No respiratory distress or use of accessory muscles. CV: RRR, S1/S2, no MRG. Cap refill < 2 sec. ABDOMEN: Soft, non-distended, non-tender. EXTREMITIES: Normal range of motion, no edema. NEUROLOGICAL: CN II-XII intact, strength 5/5, sensory intact, no slurred speech or dysarthria, finger to nose normal PSYCH: Normal mood, normal affect. SKIN: Warm, dry, normal turgor, no rashes or lesions noted. Laboratory Results 11/14/16 11/14/16 11/14/16 18:22 18:00 18:00 INR Sodium Potassium Chloride Carbon Dioxide Anion Gap BUN Creatinine Creat Clearance w eGFR Random Glucose Calcium Total Bilirubin AST ALT Alkaline Phosphatase Creatine Kinase Creatine Kinase Index CK-MB (CK-2) Troponin I Total Protein Albumin Triglycerides Cholesterol Total LDL Cholesterol HDL Cholesterol TSH 149.00 H Free T4 0.15 L Urine Color Yellow Urine Appearance Clear Urine pH 6.0 Ur Specific [place] 1.015 Urine Protein Negative Urine Glucose (UA) Negative Urine Ketones Negative Urine Blood 1+ H Urine Nitrite Negative Urine Bilirubin Negative Urine Urobilinogen Negative Ur Leukocyte Esterase Negative Urine RBC 2 Urine WBC 1 Ur Epithelial Cells Rare Hyaline Casts 1 Urine Mucus Rare Blood Type Antibody Screen 11/14/16 11/14/16 11/14/16 18:00 18:00 18:00 INR 1.04 Sodium 138 Potassium 3.6 Chloride 100 Carbon Dioxide 32 Anion Gap 6 L BUN 16 Creatinine 1.2 H D Creat Clearance w eGFR 47.75 Random Glucose 87 Calcium 8.9 Total Bilirubin 0.5 AST 60 H ALT 65 D Alkaline Phosphatase 109 Creatine Kinase 779 H Creatine Kinase Index 0.3 CK-MB (CK-2) 3.056 Troponin I < 0.02 Total Protein 8.2 Albumin 4.5 Triglycerides 192 H Cholesterol 332 H Total LDL Cholesterol 227 H HDL Cholesterol 67 H TSH Free T4 Urine Color Urine Appearance Urine pH Ur Specific [place] Urine Protein Urine Glucose (UA) Urine Ketones Urine Blood Urine Nitrite Urine Bilirubin Urine Urobilinogen Ur Leukocyte Esterase Urine RBC Urine WBC Ur Epithelial Cells Hyaline Casts Urine Mucus Blood Type O POSITIVE Antibody Screen Negative 11/14/16 18:00 RBC 3.92 MCV 89.6 MCHC 33.8 RDW 14.7 D MPV 9.1 Neutrophils % 51.6 D Lymphocytes % 41.7 H D Monocytes % 4.4 Eosinophils % 1.4 Basophils % 0.9 Radiology: CT and CD reviewed PLan: 50 year old female with a history of HTN and hypothyroidism (previously on Losartan and Synthroid, but has not taken either for several months after running out) who presented complaining of progressive fatigue and generalized weakness. On Monday, she developed right arm numbness and a "tingling" headache on the left side of her head. She has also noticed some slurring of her speech. She denies focal weakness, blurred vision, chest pain, shortness of breath, nausea/vomiting, or any other symptoms. She completed CT head and did not show acute changes. She was given ASA and admitted for CVA evaluation. CD completed and reviewed and did not show high grade stenosis. MRI brain ordered. Continue Synthroid for hypothyroidism. Monitor TSH as this can be etiology. Also suspicion for Carpal Tunnel of Right hand for which she can have EMG as outpatient. Monitor BP, goal <140/90, can take Losartan but will defer to primary on exact medication.
[2016-11-15] MEDS ORDERED: POTASSIUM CHLORIDE TABS 20 MEQ TABLET.ER (FP) PO ONE (10:30)
[2016-11-15 14:30] VITALS: BP 122/86; PULSE 82; TEMP 98
--- NOTE | 2016-11-15 15:33 | DS ---
Physical Examination Vital Signs: Vital Signs Temperature 98 F 11/15/16 14:29 Pulse Rate 82 11/15/16 14:29 Respiratory Rate 20 11/15/16 14:29 Blood Pressure 122/86 11/15/16 14:29 O2 Sat by Pulse Oximetry (%) 100 11/15/16 08:00 Labs: CBC, BMP 11/15/16 05:30 11/15/16 05:30 Discharge Summary Reason For Visit: RIGH UPPER EXTREMITY NUMBNESS Current Active Problems Hyperlipidemia (Acute) Hypothyroid (Acute) Right arm numbness (Acute) TIA (transient ischemic attack) (Acute) Hospital Course: see H and P-- Brain mri negative She will need to follow up with Neurology for EMG t or/o Carpal tunnel syndrome in right hand Needs repeat TSH in 3weeks for synthroid dosing Condition: Improved - Instructions Referrals: Artie Virgen MD [Staff Physician] - Bhupendra Hughes MD [Primary Care Provider] - Disposition: HOME - Home Medications Comprehensive Discharge Medication List: Ambulatory Orders Aspirin [ASA -] 81 mg PO DAILY #30 tab.chew 11/15/16 Atorvastatin Ca [Lipitor] 40 mg PO HS #30 tablet 11/15/16 Levothyroxine [Synthroid -] 125 mcg PO DAILY@0700 #30 tablet 11/15/16
--- NOTE | 2016-11-15 18:49 | EKG ---
Test Reason : Blood Pressure : / mmHG Vent. Rate : 054 BPM Atrial Rate : 054 BPM P-R Int : 164 ms QRS Dur : 096 ms QT Int : 466 ms P-R-T Axes : 003 055 038 degrees QTc Int : 441 ms SINUS BRADYCARDIA NONSPECIFIC T WAVE ABNORMALITY ABNORMAL ECG WHEN COMPARED WITH ECG OF 17-DEC-2006 16:34, VENT. RATE HAS DECREASED BY 31 BPM CLI Confirmed by ALBERT CLEMENT MD ([id number]) on 11/15/2016 6:49:12 PM Referred By: Confirmed By:ALBERT CLEMENT MD
[2016-11-16] MEDS ORDERED: LEVOTHYROXINE NA 125 MCG TABLET (FP) PO SCH (07:00)
== END 2016-11-15 16:15 | disposition home or self-care (01) ==
LOC: JER 16:35 → JERBED 19:19 → J2W 11-15 02:04
PROVIDERS: ADMIT Internal Medicine; ATTEND Internal Medicine
DX: R20.2 Paresthesia of skin (principal); I10 Essential (primary) hypertension; E78.5 Hyperlipidemia, unspecified; E03.9 Hypothyroidism, unspecified; G45.9 Transient cerebral ischemic attack, unspecified
CPT/HCPCS: 36415; 70450-TC; 70551-TC; 80053; 80061; 81003; 81015; 82465; 82553; 82607; 83718; 83721; 84439; 84443; 84478; 84484; 85025; 85610; 86850; 86900; 86901; 93005; 93010; 93306-TC; 93880-TC; 99285-25; G0378